=== PATIENT | male | born 1980 | race Caucasian/White ===

== ENCOUNTER 2017-12-26 18:57 | Emergency (ER) | payer OTHER ==
[~2017-12-26] VITALS: Ht 177.8 cm; Wt 71.8 kg
[2017-12-26 19:09] VITALS: BP 129/76; PULSE 80; RESP 18; TEMP 98; O2SAT 100
[2017-12-26] MEDS ORDERED: VENTAER INH (19:32)
[2017-12-26 20:00] VITALS: O2SAT 98
[2017-12-26] MEDS ORDERED: SODIUM CHLOR 0.9% 1000 ML INJ 1,000 ML IV ONE (20:00)
[2017-12-26] MEDS ORDERED: SODIUM CHLORIDE 0.9% FLUSH 10 ML FLUSH IVF PRN (20:00)
--- NOTE | 2017-12-26 20:04 | PD ---
HPI Chief Complaint: Syncope/Near-Syncope Time Seen by Provider: 19:42 Travel History International Travel<30 days: No Contact w/Intl Traveler<30days: No Traveled to known affect area: No History of Present Illness HPI 37-year-old male with history of asthma here for evaluation of fever for 2 weeks and a syncopal episode that occurred this evening. Patient has had intermittent fevers for 2 weeks. He states he usually notices his fever around 4:00 AM and he takes Tylenol with improved symptoms throughout the rest of the day. Today while at dinner he did not feel well and went to the car. He felt as though he was going to pass out and subsequently did have a syncopal episode. He sustained a minor injury to his right knee during this episode. Patient believes he may have some sinus symptoms. Other than that he has not had a cough. No dyspnea. No abdominal pain, nausea, vomiting, or diarrhea. No rash. No history of IVDU. No recent travel outside of the country. No recent incarceration. No known history of cardiac disease. No history of DVT or PE. PFSH Past Medical History Asthma: Yes Diminished Hearing: No Tetanus Vaccination: < 5 Years Influenza Vaccination: Yes ?: Not Past Surgical History Surgical History: No Previous Surgery Social History Alcohol Use: No Tobacco Use: Yes (1PPD) Substance Use: No Allergies-Medications (Allergen,Severity, Reaction): Coded Allergies: azithromycin (Verified Allergy, Unknown, 12/26/17) Reported Meds & Prescriptions Reported Meds & Active Scripts Active Reported Ventolin Hfa 18 GM Inh (Albuterol Sulfate) 90 Mcg/Act Aer 2 Puff INH Q6H PRN Review of Systems Except as stated in HPI: all other systems reviewed are Neg Physical Exam Narrative GENERAL: Well-developed, well-nourished, comfortable, no apparent distress. SKIN: Focused skin assessment warm/dry. HEAD: Atraumatic. Normocephalic. EYES: Pupils equal and round. No scleral icterus. No injection or drainage. ENT: Mucous membranes pink and moist. NECK: Trachea midline. No JVD. CARDIOVASCULAR: Regular rate and rhythm. No murmur appreciated. RESPIRATORY: No accessory muscle use. Clear to auscultation. Breath sounds equal bilaterally. GASTROINTESTINAL: Abdomen soft, non-tender, nondistended. MUSCULOSKELETAL: No obvious deformities. No clubbing. No cyanosis. No edema. NEUROLOGICAL: Awake and alert. No obvious cranial nerve deficits. Motor grossly within normal limits. Normal speech. PSYCHIATRIC: Appropriate mood and affect; insight and judgment normal. Data Data Last Documented VS Vital Signs Date Time Temp Pulse Resp B/P (MAP) Pulse Ox O2 Delivery O2 Flow Rate FiO2 12/26/17 21:35 92 18 116/64 (81) 98 12/26/17 19:09 98.0 Orders Orders Electrocardiogram (12/26/17 19:57) Ckmb (Isoenzyme) Profile (12/26/17 19:57) Complete Blood Count With Diff (12/26/17 19:57) Comprehensive Metabolic Panel (12/26/17 19:57) D-Dimer (12/26/17:57) Magnesium (Mg) (12/26/17 19:57) Prothrombin Time / Inr (Pt) (12/26/17:57) Act Partial Throm Time (Ptt) (12/26/17:57) Troponin I (12/26/17 19:57) Chest, Single Ap (12/26/17 19:57) Ecg Monitoring (12/26/17 19:57) Iv Access Insert/Monitor (12/26/17 19:57) Oximetry (12/26/17 19:57) Sodium Chloride 0.9% Flush (Ns Flush) (12/26/17 20:00) Sodium Chlor 0.9% 1000 Ml Inj (Ns 1000 M (12/26/17 20:00) Influenzae A/B Antigen (12/26/17 19:57) CKMB (12/26/17 20:15) CKMB% (12/26/17 20:15) Ct Pulmonary Angiogram (12/26/17 21:12) Ct Abd/Pel W Iv Contrast(Rout) (12/26/17 ) Hepatitis Profile (12/26/17 22:08) Monoscreen (12/26/17 22:34) Acetaminophen (Tylenol) (12/26/17 23:00) Iohexol 350 Inj (Omnipaque 350 Inj) (12/26/17 23:39) Labs Laboratory Tests Test 12/26/17 20:15 12/26/17 22:20 12/26/17 22:34 White Blood Count 13.3 TH/MM3 Red Blood Count 5.42 MIL/MM3 Hemoglobin 16.3 GM/DL Hematocrit 48.3 % Mean Corpuscular Volume 89.2 FL Mean Corpuscular Hemoglobin 30.0 PG Mean Corpuscular Hemoglobin Concent 33.7 % Red Cell Distribution Width 12.0 % Platelet Count 227 TH/MM3 Mean Platelet Volume 6.8 FL CBC Comment AUTO DIFF Differential Total Cells Counted 100 Neutrophils % (Manual) 22 % Band Neutrophils % 2 % Lymphocytes % 16 % Monocytes % 8 % Eosinophils % 3 % Basophils % 2 % Neutrophils # (Manual) 3.2 TH/MM3 Differential Comment FINAL DIFF MANUAL Atypical Lymphocytes 47 % Platelet Estimate NORMAL Platelet Morphology Comment NORMAL Red Cell Morphology Comment NORMAL Prothrombin Time 10.6 SEC Prothromb Time International Ratio 1.0 RATIO Activated Partial Thromboplast Time 29.0 SEC D-Dimer Quantitative (PE/DVT) 3.34 MG/L FEU Blood Urea Nitrogen 6 MG/DL Creatinine 0.92 MG/DL Random Glucose 95 MG/DL Total Protein 7.6 GM/DL Albumin 3.7 GM/DL Calcium Level 8.8 MG/DL Magnesium Level 2.2 MG/DL Aspartate Amino Transf (AST/SGOT) 119 U/L Alanine Aminotransferase (ALT/SGPT) 144 U/L Total Bilirubin 0.5 MG/DL Sodium Level 133 MEQ/L Potassium Level 3.7 MEQ/L Chloride Level 97 MEQ/L Carbon Dioxide Level 28.7 MEQ/L Anion Gap 7 MEQ/L Estimat Glomerular Filtration Rate 94 ML/MIN Total Creatine Kinase 118 U/L Creatine Kinase MB 1.6 NG/ML Troponin I LESS THAN 0.02 NG/ML MDM Medical Decision Making Medical Screen Exam Complete: Yes Emergency Medical Condition: Yes Interpretation(s) EKG: Sinus, rate 79, normal axis, normal intervals, no acute ischemic normality. Differential Diagnosis Syncope, dysrhythmia, viral illness, pneumonia, PE, sinusitis Narrative Course Initial vital signs show heart rate 80, blood pressure 129/76, pulse ox 100% on room air, oral temperature 98F. CBC: WBC 13.3, hemoglobin 16.3, hematocrit 48.3, platelets 227. Differential shows 47% atypical lymphocytes. CMP is remarkable for AST 119, ALT 144. Cardiac enzymes are negative. D-dimer is 3.34. Chest x-ray shows no acute disease. Influenza is negative. The patient takes about a sixpack of beer daily, however over the last 2 weeks he has not had much alcohol to drink because he has not been feeling well. Because of elevated d-dimer in the setting of syncope, CT pulmonary angiogram was ordered to rule out PE. Given slight elevation in LFTs as well as 47% abnormal lymphocytes seen on CBC differential, CT abdomen pelvis was also ordered to further evaluate the patient's liver as well as for possibility of abnormal lymphadenopathy. CT pulmonary angiogram: CONCLUSION: 1. The study is negative for pulmonary embolism. CT abdomen pelvis: CONCLUSION: 1. Negative CT abdomen/pelvis with contrast. Patient was made aware of all findings up until this point. He is resting comfortably. Oral temperature in the emergency department is 99F. I had a discussion with the patient that I would prefer he be admitted for further evaluation, however he tells me that he would prefer to be discharged home because his needs to go to work tomorrow because she may be getting a promotion tomorrow, and he needs to stay home to take care of their infant. At approximately midnight at the end of my shift the patient was signed out to Dr. Moctezuma to follow-up with mono screen and disposition. Diagnosis Primary Impression: Syncope Qualified Codes: R55 - Syncope and collapse Additional Impressions: Lymphocytosis Elevated liver enzymes Scripts Albuterol 18 GM Inh (Ventolin Hfa 18 GM Inh) 90 Mcg/Act Aer 2 PUFF INH Q4-6H Y for SHORTNESS OF BREATH, #1 INHALER 0 Refills Prov: Bharathi Augustine MD 12/27/17 Bharathi Augustine MD Dec 26, 2017 20:04
[2017-12-26 20:51] LABS: HEMATOCRIT 48.3 % (39.0-51.0); HEMOGLOBIN 16.3 GM/DL (13.0-17.0); MEAN CELL VOLUME 89.2 FL (80.0-100.0); MEAN CORPUSCULAR HGB CONC 33.7 % (32.0-36.0); MEAN PLATELET VOLUME 6.8 FL (7.0-11.0); PLATELET COUNT 227 TH/MM3 (150-450); RED BLOOD COUNT 5.42 MIL/MM3 (4.50-5.90); WHITE BLOOD COUNT 13.3 TH/MM3 (4.0-11.0)
[2017-12-26 20:53] LABS: CHLORIDE 97 MEQ/L (98-107); SODIUM (NA) 133 MEQ/L (136-145)
[2017-12-26 20:57] LABS: CALCIUM 8.8 MG/DL (8.5-10.1)
[2017-12-26 20:58] LABS: ALBUMIN 3.7 GM/DL (3.4-5.0); BICARBONATE 28.7 MEQ/L (21.0-32.0); BLOOD UREA NITROGEN 6 MG/DL (7-18); GLUCOSE,RANDOM 95 MG/DL (74-106); MAGNESIUM 2.2 MG/DL (1.5-2.5)
[2017-12-26 21:01] LABS: ALT (GPT) 144 U/L (12-78); AST (GOT) 119 U/L (15-37); CREATININE 0.92 MG/DL (0.60-1.30); GLOMERULAR FILTRATION RATE 94 ML/MIN (>89)
[2017-12-26 21:02] LABS: TOTAL BILIRUBIN ADULT 0.5 MG/DL (0.2-1.0); TOTAL PROTEIN 7.6 GM/DL (6.4-8.2)
--- NOTE | 2017-12-26 21:02 | RADRPT ---
EXAM DATE/TIME: 12/26/2017 20:03 [facility] COMPARISON: No previous studies available for comparison. INDICATIONS : Syncopal episode today, fever on and off for 2 weeks. MEDICAL HISTORY : None. SURGICAL HISTORY : None. ENCOUNTER: Initial ACUITY: 2 weeks PAIN SCORE: 0/10 LOCATION: Bilateral chest FINDINGS: A single view of the chest demonstrates the lungs to be symmetrically aerated without evidence of mas s, infiltrate or effusion. The cardiomediastinal contours are unremarkable. Osseous structures are intact. CONCLUSION: No acute disease. Silvestre Regalado MD on December 26, 2017 at 20:59 Board Certified Radiologist. This report was verified electronically.
[2017-12-26 21:03] LABS: ALKALINE PHOSPHATASE 275 U/L (45-117)
[2017-12-26 21:04] LABS: PROTHROMBIN TIME - PATIENT 10.6 SEC (9.8-11.6)
[2017-12-26 21:06] LABS: TROPONIN I LESS THAN 0.02 NG/ML (0.02-0.05)
[2017-12-26 21:07] LABS: D-DIMER 3.34 MG/L FEU (0.00-0.50)
[2017-12-26 21:30] LABS: ATYPICAL LYMPHOCYTES 47 % (0-0); BANDS 2 % (0-6); BASOPHILS 2 % (0-2); LYMPHOCYTES 16 % (9-44); MONOCYTES 8 % (0-8); NEUTROPHIL # MANUAL DIFF 3.2 TH/MM3 (1.8-7.7); POLYS (SEG NEUTROPHILS) 22 % (16-70)
[2017-12-26 21:35] VITALS: BP 116/64; PULSE 92; RESP 18; O2SAT 98
[2017-12-26] MEDS ORDERED: ACETAMINOPHEN 325 MG TAB PO ONE (23:00)
[2017-12-26] MEDS ORDERED: IOHEXOL 350 MG/ML 10 ML VIAL (for RAD DIAG) IVCONTRAST ONE (23:39)
--- NOTE | 2017-12-26 23:48 | RADRPT ---
EXAM DATE/TIME: 12/26/2017 23:12 [facility] COMPARISON: No previous studies available for comparison. INDICATIONS : Weakness. Fever. IV CONTRAST: 100 cc Omnipaque 350 (iohexol) IV ; Cumulative dose for multiple exams. RADIATION DOSE: 11.32 CTDIvol (mGy) MEDICAL HISTORY : None SURGICAL HISTORY : None. ENCOUNTER: Initial ACUITY: 1 day PAIN SCALE: 0/10 LOCATION: chest TECHNIQUE: Volumetric scanning of the chest was performed using a pulmonary embolism protocol MIP images were re constructed. Using automated exposure control and adjustment of the mA and/or kV according to patien t size, radiation dose was kept as low as reasonably achievable to obtain optimal diagnostic quality images. DICOM format image data is available electronically for review and comparison. Follow-up recommendations for detected pulmonary nodules are based at a minimum on nodule size and pa tient risk factors according to Fleischner Society Guidelines. FINDINGS: PULMONARY ARTERIES: No filling defects are seen in the pulmonary arteries through the segmental level. LUNGS: There is no consolidation or pneumothorax . No concerning pulmonary nodule is visualized. PLEURAE: There is no pleural thickening or pleural effusion. MEDIASTINUM: There is good visualization of the great vessels of the middle mediastinum. No evidence of mediastin al or hilar adenopathy/mass. CONCLUSION: 1. The study is negative for pulmonary embolism. Shon Moya MD on December 26, 2017 at 23:45 Board Certified Radiologist. This report was verified electronically.
--- NOTE | 2017-12-26 23:49 | RADRPT ---
EXAM DATE/TIME: 12/26/2017 23:12 [facility] COMPARISON: No previous studies available for comparison. INDICATIONS : Fever. Weakness. IV CONTRAST: 100 cc Omnipaque 350 (iohexol) IV ; Cumulative dose for multiple exams. ORAL CONTRAST: No oral contrast ingested. RADIATION DOSE: 9.09 CTDIvol (mGy) MEDICAL HISTORY : None SURGICAL HISTORY : None. ENCOUNTER: Initial ACUITY: 1 day PAIN SCALE: 0/10 LOCATION: abdomen TECHNIQUE: Volumetric scanning of the abdomen and pelvis was performed. Using automated exposure control and ad justment of the mA and/or kV according to patient size, radiation dose was kept as low as reasonably achievable to obtain optimal diagnostic quality images. DICOM format image data is available electro nically for review and comparison. FINDINGS: LOWER LUNGS: The visualized lower lungs are clear. LIVER: Homogeneous density without lesion. There is no dilation of the biliary tree. No calcified gallston es. SPLEEN: Normal size without lesion. PANCREAS: Within normal limits. KIDNEYS: Normal in size and shape. There is no mass, stone or hydronephrosis. ADRENAL GLANDS: Within normal limits. VASCULAR: There is no aortic aneurysm. BOWEL/MESENTERY: The stomach, small bowel, and colon demonstrate no acute abnormality. There is no free intraperitone al air or fluid. ABDOMINAL WALL: Within normal limits. RETROPERITONEUM: There is no lymphadenopathy. BLADDER: No wall thickening or mass. REPRODUCTIVE: Within normal limits. INGUINAL: There is no lymphadenopathy or hernia. MUSCULOSKELETAL: Within normal limits for patient age. CONCLUSION: 1. Negative CT abdomen/pelvis with contrast. Shon Moya MD on December 26, 2017 at 23:46 Board Certified Radiologist. This report was verified electronically.
[2017-12-27] MEDS ORDERED: VENTAER INH (00:12)
--- NOTE | 2017-12-27 00:13 | PD ---
Physical Exam Date Seen by Provider: Dec 27, 2017 Time Seen by Provider: 00:11 Narrative Accepted in transfer of care from Dr. Augustine GENERAL: Well-developed well-nourished male no acute distress no respiratory distress SKIN: Warm and dry. CARDIOVASCULAR: Regular rate and rhythm without murmurs, gallops, or rubs. RESPIRATORY: Breath sounds equal bilaterally. No accessory muscle use. GASTROINTESTINAL: Abdomen soft, non-tender, nondistended. Data Data Last Documented VS Vital Signs Date Time Temp Pulse Resp B/P (MAP) Pulse Ox O2 Delivery O2 Flow Rate FiO2 12/27/17 00:30 99 Room Air 12/27/17 00:30 98.6 71 18 124/64 (84) Orders Orders Electrocardiogram (12/26/17 19:57) Ckmb (Isoenzyme) Profile (12/26/17 19:57) Complete Blood Count With Diff (12/26/17 19:57) Comprehensive Metabolic Panel (12/26/17 19:57) D-Dimer (12/26/17 19:57) Magnesium (Mg) (12/26/17 19:57) Prothrombin Time / Inr (Pt) (12/26/17 19:57) Act Partial Throm Time (Ptt) (12/26/17 19:57) Troponin I (12/26/17 19:57) Chest, Single Ap (12/26/17 19:57) Ecg Monitoring (12/26/17 19:57) Iv Access Insert/Monitor (12/26/17 19:57) Oximetry (12/26/17 19:57) Sodium Chloride 0.9% Flush (Ns Flush) (12/26/17 20:00) Sodium Chlor 0.9% 1000 Ml Inj (Ns 1000 M (12/26/17 20:00) Influenzae A/B Antigen (12/26/17 19:57) CKMB (12/26/17 20:15) CKMB% (12/26/17 20:15) Ct Pulmonary Angiogram (12/26/17 21:12) Ct Abd/Pel W Iv Contrast(Rout) (12/26/17 ) Hepatitis Profile (12/26/17 22:08) Monoscreen (12/26/17 22:34) Acetaminophen (Tylenol) (12/26/17 23:00) Iohexol 350 Inj (Omnipaque 350 Inj) (12/26/17 23:39) Ed Discharge Order (12/27/17 02:01) Labs Laboratory Tests Test 12/26/17 20:15 12/26/17 22:20 12/26/17 22:34 White Blood Count 13.3 TH/MM3 Red Blood Count 5.42 MIL/MM3 Hemoglobin 16.3 GM/DL Hematocrit 48.3 % Mean Corpuscular Volume 89.2 FL Mean Corpuscular Hemoglobin 30.0 PG Mean Corpuscular Hemoglobin Concent 33.7 % Red Cell Distribution Width 12.0 % Platelet Count 227 TH/MM3 Mean Platelet Volume 6.8 FL CBC Comment AUTO DIFF Differential Total Cells Counted 100 Neutrophils % (Manual) 22 % Band Neutrophils % 2 % Lymphocytes % 16 % Monocytes % 8 % Eosinophils % 3 % Basophils % 2 % Neutrophils # (Manual) 3.2 TH/MM3 Differential Comment FINAL DIFF MANUAL Atypical Lymphocytes 47 % Platelet Estimate NORMAL Platelet Morphology Comment NORMAL Red Cell Morphology Comment NORMAL Prothrombin Time 10.6 SEC Prothromb Time International Ratio 1.0 RATIO Activated Partial Thromboplast Time 29.0 SEC D-Dimer Quantitative (PE/DVT) 3.34 MG/L FEU Blood Urea Nitrogen 6 MG/DL Creatinine 0.92 MG/DL Random Glucose 95 MG/DL Total Protein 7.6 GM/DL Albumin 3.7 GM/DL Calcium Level 8.8 MG/DL Magnesium Level 2.2 MG/DL Aspartate Amino Transf (AST/SGOT) 119 U/L Alanine Aminotransferase (ALT/SGPT) 144 U/L Total Bilirubin 0.5 MG/DL Sodium Level 133 MEQ/L Potassium Level 3.7 MEQ/L Chloride Level 97 MEQ/L Carbon Dioxide Level 28.7 MEQ/L Anion Gap 7 MEQ/L Estimat Glomerular Filtration Rate 94 ML/MIN Total Creatine Kinase 118 U/L Creatine Kinase MB 1.6 NG/ML Troponin I LESS THAN 0.02 NG/ML Monoscreen NEG MDM Medical Record Reviewed: Yes Supervised Visit with ADOLFO: No Interpretation(s) EKG: NSR no acute injury pattern noted Last Impressions CT Angiography [id number]/[id number] Signed Impressions: Service Date/Time: Tuesday, December 26, 2017 23:12 - CONCLUSION: 1. The study is negative for pulmonary embolism. Shon Moya MD Chest X-Ray 12/26/[id number] Signed Impressions: Service Date/Time: Tuesday, December 26, 2017 20:03 - CONCLUSION: No acute disease. Silvestre Regalado MD Abdomen/Pelvis CT 12/26/17 0000 Signed Impressions: Service Date/Time: Tuesday, December 26, 2017 23:12 - CONCLUSION: 1. Negative CT abdomen/pelvis with contrast. Shon Moya MD CBC & BMP Diagram 12/26/17 20:15 Total Protein 7.6, Albumin 3.7, Calcium Level 8.8, Magnesium Level 2.2, Aspartate Amino Transf (AST/SGOT) 119 H, Alanine Aminotransferase (ALT/SGPT) 144 H, Total Bilirubin 0.5 Vital Signs Date Time Temp Pulse Resp B/P (MAP) Pulse Ox O2 Delivery O2 Flow Rate FiO2 12/26/17 21:35 92 18 116/64 (81) 98 12/26/17 20:00 98 12/26/17 19:09 98.0 80 18 129/76 (93) 100 Differential Diagnosis Accepted in transfer of care from Dr. Augustine; please refer to his dictation Narrative Course Accepted transfer of care from Dr. Augustine; follow-up of pending labs and patient disposition; patient has been ill for approximately 2 weeks had syncopal episode ptosis otherwise no other focality Monospot is pending patient does not want to be admitted at this time this is been discussed extensively with the patient by [facility] spot test is negative. Patient with spouse at bedside informed of lab results which identifies mild leukocytosis with atypical lymphocytosis with negative Monospot and negative CT thorax and abdomen pelvis without lymphadenopathy as well as mild elevation of transaminases previous alcohol consumption had patient has been taking Tylenol once daily for temperature elevation approximately 4 AM each day. Patient again has been offered recommendation to be admitted for observation for cardiac monitoring repeat lab results follow-up on hepatitis profile and further investigation as to etiology of daily fever and transaminitis. Patient is adamant that he does not want to stay is at bedside and states she will arrange follow-up for patient through hematology. Patient again is encouraged to consider observation stay again declines observation stay. Patient does request prescription for a refill on his rescue inhaler as he does use Ventolin for history of asthma. Diagnosis Primary Impression: Lymphocytosis Additional Impressions: Syncope Qualified Codes: R55 - Syncope and collapse Elevated liver enzymes Referrals: Primary Care Physician call for appointment Patient Instructions: General Instructions Additional Instruction: Increase fluid hydration Follow-up with primary care provider Return to the emergency department for any concerns or change in condition Use inhaler as prescribed as needed Med/Other Pt SpecificInfo: Prescription(s) given Scripts Albuterol 18 GM Inh (Ventolin Hfa 18 GM Inh) 90 Mcg/Act Aer 2 PUFF INH Q4-6H Y for SHORTNESS OF BREATH, #1 INHALER 0 Refills Prov: Bharahti Augustine MD 12/27/17 Disposition: 01 DISCHARGE HOME Condition: Stable Mary Moctezuma MD Dec 27, 2017 00:13
[2017-12-27 00:30] VITALS: BP 124/64; PULSE 71; RESP 18; TEMP 98.6; O2SAT 99
[2017-12-27 00:37] LABS: MONOSCREEN NEG (NEG)
[2017-12-27 02:10] VITALS: BP_SYST 110; BP_SYST 118; BP_SYST 96; BP_DIAS 63; BP_DIAS 69; BP_DIAS 73; RESP 18; RESP 20
[2017-12-27] MEDS ORDERED: SODIUM CHLOR 0.9% 1000 ML INJ 1,000 ML IV ONE (02:15)
[2017-12-27 02:20] VITALS: TEMP 97.9
--- NOTE | 2017-12-27 08:45 | EKG ---
Date Performed: 12/26/2017 Time Performed: 20:06:35 PTAGE: 37 years EKG: Sinus rhythm NORMAL ECG NO PREVIOUS TRACING DOCTOR: Aidan Moran Interpretating Date/Time 12/27/2017 08:32:46
== END 2017-12-27 02:39 | disposition home or self-care (01) ==
LOC: PHEFT 18:57
DX: D72.820 Lymphocytosis (symptomatic) (principal); R55 Syncope and collapse; R74.8 Abnormal levels of other serum enzymes; J45.909 Unspecified asthma, uncomplicated; F17.200 Nicotine dependence, unspecified, uncomplicated; R53.1 Weakness; R50.9 Fever, unspecified
CPT/HCPCS: 71045; 71275; 74177; 80053; 80074; 82550; 82552; 83735; 84484; 85007; 85027; 85379; 85610; 85730; 86308; 87804; 93005; 96360; 96361; 99285; J7030; Q9967